=== PATIENT | male | born 1980 | race Caucasian/White ===

== ENCOUNTER 2018-07-13 16:13 | Emergency (ER) | payer MEDICARE, SELFPAY ==
[2018-07-13 16:14] VITALS: BP 125/95; PULSE 109; RESP 15; TEMP 36.7; O2SAT 99; BMI 16.9
--- NOTE | 2018-07-13 16:24 | ED.VISSUMM ---
- ER Visit Summary Date of Service: 07/13/18 Chief Complaint: Laceration History of Present Illness: The patient is a 38 M who cut his left index finger with a knife just prior to arrival. The patient was cutting plastic. He is unsure of his tetanus status. He reports numbness to the area. No other injuries or complaints. Right hand dominant. Physical Examination: Patient has a 2 cm laceration at his left index finger near the DIP joint, radial side. Full-thickness. Subjective paresthesias to the area. Capillary refill normal. No laxity. No deformity. Good range of motion. Test Results: None performed Emergency Department Course and Treatment: Tetanus updated. Index finger was digitally blocked. Cleaned, irrigated, explored. Closed with simple interrupted sutures. Treated with Keflex for prophylaxis. Follow-up with primary care in 10-14 days for suture removal. Return right away for any signs of infection or other complications. Treatment Plan: As above Disposition: Discharge Impression: 1. Left index finger laceration 2 cm This note was generated with [employer] dictation software. It may contain incorrect words, spelling, and punctuation that were not noted in review of the chart prior to signing ED Disposition - Plan for ED Patient: Chief Complaint: Laceration Referrals: Care Physician,No Primary [Primary Care Provider] -
--- NOTE | 2018-07-13 16:25 | ED.DEP ---
ED Disposition - Plan for ED Patient: Chief Complaint: Laceration Instructions: ED Laceration Hand Prescriptions: Cephalexin [Keflex] 500 mg PO Q6 #20 cap Referrals: Renu Hatfield [NON-STAFF] - 10-14 Days suture removal
[2018-07-13] MEDS: Diphth,Pertuss(Acell),Tet Vac 0.5 ML Vial IM (16:55)
[2018-07-13] MEDS: Cephalexin 250 MG Capsule 500 MG PO (16:57)
--- OUTSIDE RECORDS SUMMARY | 2018-09-14 22:56 | XMS RPT_ITS ---
:1980 Author Organization [facility] Care Team Providers Name Role Phone Primay Care Physicia, No Primary Care Unavailable Gilbert Paulino Attending Unavailable PROBLEMS PROBLEMS No Problem Records FoundPROCEDURES PROCEDURES No Procedure Records FoundRESULTS RESULTS EMERGENCY DEPARTMENT Observed: 07/13/2018 Status: F Source: [place] SUMMARY 4:27 PM [facility] [place] [place] REPOSITORY [facility] Medical Records Department [address] [place] [address] Emergency Department Summary 07/13/18 1624 MR#: [id number] Acct: [id number] Name: SANTO BETNACOURT Rep #: [id number] : 1980 38 From: Gilbert Paulino MD PCP: Care Physician, No Primary Status: PRE ER - ER Visit Summary Date of Service: 07/13/18 Chief Complaint: Laceration History of Present Illness: The patient is a 38 M who cut his left index finger with a knife just prior to arrival. The patient was cutting plastic. He is unsure of his tetanus status. He reports numbness to the area. No other injuries or complaints. Right hand dominant. Physical Examination: Patient has a 2 cm laceration at his left index finger near the DIP joint, radial side. Full-thickness. Subjective paresthesias to the area. Capillary refill normal. No laxity. No deformity. Good range of motion. Test Results: None performed Emergency Department Course and Treatment: Tetanus updated. Index finger was digitally blocked. Cleaned, irrigated, explored. Closed with simple interrupted sutures. Treated with Keflex for prophylaxis. Follow-up with primary care in 10- 14 days for suture removal. Return right away for any signs of infection or other complications. Treatment Plan: As above Disposition: Discharge Impression: 1. Left index finger laceration 2 cm This note was generated with [employer] software. It may contain incorrect words, spelling, and punctuation that were not noted in review of the chart prior to signing ED Disposition - Plan for ED Patient: Chief Complaint: Laceration Referrals: Care Physician,No Primary [Primary Care Provider] - What to do if you have Problems For any increased pain, shortness of breath, bleeding, nausea or vomiting, chest pain, or any unexpected problems, contact your Primary Care Provider. Call [facility] ([phone]) or report to the closest Emergency Room. Call 911 if necessary. 07/13/181626 <Electronically signed by Gilbert Paulino MD> Date Gilbert Paulino MD Cosigner Signature (If Indicated): Date CC: No Primary Care Physician DISCHARGE INSTRUCTION Observed: 07/13/2018 Status: F Source: [place] 4:27 PM [facility] [place] [place] REPOSITORY [facility] Medical Records Department [address] [place] [id number] Discharge Instruction 07/13/181624 MR#: [id number] Acct: [id number] Name: SANTO BETANCOURT Rep #: [id number] : 1980 38 From: Gilbert Paulino MD PCP: Care Physician, No Primary Status: PRE ER ED Disposition - Plan for ED Patient: Chief Complaint: Laceration Instructions: ED Laceration Hand Prescriptions: Cephalexin [Keflex] 500 mg PO Q6 #20 cap Referrals: Renu Hatfield [NON-STAFF] - 10-14 Days suture removal What to do if you have Problems For any increased pain, shortness of breath, bleeding, nausea or vomiting, chest pain, or any unexpected problems, contact your Primary Care Provider. Call [facility] ([phone]) or report to the closest Emergency Room. Call 911 if necessary. 07/13/181626 <Electronically signed by Gilbert Paulino MD> Date Gilbert Paulino MD Cosigner Signature (If Indicated): Date CC: No Primary Care Physician ALLERGIES ALLERGIES DATE TYPE / CODE NAME / CODE REACTION SEVERITY SOURCE 07/13/2018 Miscellaneous MACADAMIA NUTS Other Unknown Layne Allergy/[id number](S [facility]) Hospital Repository ENCOUNTERS ENCOUNTERS ADMIT/DISCHARGE ACCOUNT ADMITTING ENCOUNTER LOCATION SOURCE NUMBER CLASS 07/13/2018/ [id number] Emergency Layne Tillman [facility] ing:ED Repository PAYERS PAYERS ENCOUNTER GUARANTOR PAYER SUBSCRIBER SOURCE 07/13/2018 SANTO BETANCOURT340 Primary SANTO Tillman [facility] Insurance:MEDICARE WHITEDOB: [employer], [place] PART A [facility] [id number] 11831Lxp: .. Number: Repository () [id number] Date:2018-07-13 07/13/2018 Secondary NOT GIVENUNK [place] Insurance:SELF PAY [facility] Number: Effective Repository Date:2018-07-13
== END 2018-07-13 17:27 | disposition home or self-care (01) ==
PROVIDERS: Emergency Provider Emergency Medicine
DX: S61.211A Laceration without foreign body of left index finger without damage to nail, initial encounter (principal); R20.2 Paresthesia of skin; W26.0XXA Contact with knife, initial encounter; Y93.9 Activity, unspecified; Y92.9 Unspecified place or not applicable
CPT/HCPCS: 12001; 90471; 90715; 99283

== ENCOUNTER 2022-11-12 16:17 | Emergency (ER) | payer MEDICARE, SELFPAY ==
[2022-11-12 16:18] VITALS: BP 128/97; PULSE 99; RESP 18; TEMP 36.3; O2SAT 100
--- NOTE | 2022-11-12 16:26 | ED.RN ---
pt having a difficult time opening his eyes in the bright light.
--- NOTE | 2022-11-12 16:41 | EDS_ITS ---
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 He did not use any eye protection. Afterwards he felt fine. But early this morning he started to get burning itching and photophobia in both eyes. No nausea vomiting or headaches. No history of problems. No skin pain. No discharge. It is much better with his eyes closed and is worse when he looks at bright lights or the sound PFSH PFS Home Medications cephalexin 500 mg capsule 500 mg PO Q6 #20 caps 07/13/18 [Rx Last Taken Unknown] ibuprofen 800 mg tablet 800 mg PO TID PRN PRN Pain #20 tabs 07/13/18 [Rx Last Taken Unknown] hydrocodone-acetaminophen 5-325mg 5mg-325mg 1 tab PO Q6H 2 days #8 TABLETS 11/12/22 [Rx Last Taken Unknown] Allergy/AdvReac Type Severity Reaction Status Date / Time macadamia nut oil Allergy NEEDS Verified 11/12/22 16:19 FOLLOW-UP Social History Smoking Status: Never smoker ROS ROS ED Constitutional Constitutional ED: Denies chills or fever(s) Eyes Eyes: Reports change in vision and other Details: See history of present illness ENT ENT ED: Denies rhinorrhea Gastrointestinal Gastrointestinal: Denies nausea or vomiting Musculoskeletal Musculoskeletal: Denies myalgias Integumentary Denies Abrasions or rash Neurologic Neurologic: Denies headache(s), paresthesias or weakness Hematologic/Lymphatic Hematologic/Lymphatic: Denies easy bleeding, easy bruising or lymphadenopathy EXAM Physical Exam Narrative Exam Narrative: Patient awake alert. He is sitting on bed prefers his eyes closed. He does have tearing. HEENT shows no swelling rashes or vesicles or Briceño sign. No sinus tenderness. Eyes: Normal range of motion without limitation or pain. He does have tearing. He has some mild conjunctival injection diffusely. Pupillary response is normal. There is mild photophobia. Slit-lamp exam shows no gross abnormalities. I then placed tetracaine in the eye and he feels markedly improved. Eye stained with fluorescein and he has a superficial punctate keratitis pattern really as a band across his eyes. It looks like he was likely squinting when he was welding and he has this band of affected corneal epithelium. Cardiorespiratory shows easy unlabored breathing. Const Vital Signs: 11/12/22 16:18 Temperature 97.4 F L Temperature Source Temporal Pulse Rate 99 Respiratory Rate 18 Blood Pressure 128/97 H Blood Pressure Mean 107 Pulse Ox 100 Oxygen Delivery Method Room Air MDM MDM MDM Narrative Medical decision making narrative: I explained that this usually resolves within 1 to 2 days. I will give him 3 fr om Meissen ointment that will help. He should use dark glasses and keep his eyes closed. He should have avoid any further welding or sunlight. Even for a few days he can have some discomfort with bright lights. If he has significant visual loss he should return. He states that his blurry nails but he does not really want to open his eyes to do the exam. He states he can see everything is just a little blurry because he cannot open his eyes fully. Discharge Plan Triage Chief Complaint: Eye Problem ED Provider: Baljit Trevino Dx/Rx/DC Orders Clinical Impression: Exposure to welding light (arc), initial encounter, UV keratitis Instructions: ED Flash Burn to Eye Prescriptions: New hydrocodone-acetaminophen [hydrocodone-acetaminophen] 5-325 mg tablet 1 tab PO Q6H 2 Days Qty: 8 0RF No Action cephalexin 500 MG capsule 500 mg PO Q6 Qty: 20 0RF ibuprofen 800 MG tablet 800 mg PO TID PRN PRN (Reason: Pain) Qty: 20 0RF Primary Care Provider: Care Physician,No Primary Referrals: Shubham Thomason MD [Med Staff - Active Staff] - 1-2 Days if not improving Care Physician,No Primary [Primary Care Provider] - Disposition Disposition: Home, Self Care
[2022-11-12] MEDS: Fluorescein 1 MG STRIP 1 STRIP OPHTHALMIC (16:48)
[2022-11-12] MEDS: Tetracaine 0.5% Ophthalmic Bottle 1 DRP OPHTHALMIC (16:48)
[2022-11-12 16:57] VITALS: BMI 20.5
[2022-11-12] MEDS: Erythromycin Ophthalmic (NSY) 1 GM OPTH.TUBE 0.5 APPLIC EACH EYE (16:57)
== END 2022-11-12 16:58 | disposition home or self-care (01) ==
PROVIDERS: Emergency Provider Emergency Medicine; Visit Provider Emergency Medicine
DX: H16.8 Other keratitis (principal); W89.0XXA Exposure to welding light (arc), initial encounter
CPT/HCPCS: 99282

== ENCOUNTER 2022-12-21 | Emergency (ER) | payer MEDICARE, SELFPAY ==
[2022-12-21 00:02] VITALS: BP 127/98; PULSE 107; RESP 18; TEMP 36.8; O2SAT 99
--- NOTE | 2022-12-21 00:11 | RAD_ITS ---
INDICATION: trauma EXAMINATION/TECHNIQUE: X-RAY - LEFT XR Wrist Min 3 Views COMPARISON: None. FINDINGS: SOFT TISSUES: Unremarkable. BONES/JOINTS: Linear lucency within the articular surface of the distal radius seen only on the AP view. No other evidence of an acute fracture and no dislocation. Chronic fifth metacarpal fracture. No significant degenerative changes. No erosive changes. RAD/Wrist min 3 Views IMPRESSION: Questionable nondisplaced intra-articular fracture of the distal radius. Consider follow-up with CT. Electronically Signed: Ranjith Diaz DO at 0:35 EDT ,
--- NOTE | 2022-12-21 00:20 | RAD_ITS ---
INDICATION: trauma EXAMINATION/TECHNIQUE: X-RAY - LEFT XR Forearm 2 Views COMPARISON: None. FINDINGS: SOFT TISSUES: Unremarkable. BONES/JOINTS: Linear lucency at the articular surface of the distal radius. No other evidence of a fracture. No significant degenerative changes. No erosive changes. RAD/Forearm 2 Views IMPRESSION: Questionable nondisplaced intra-articular fracture of the distal radius. Consider follow-up with CT. Electronically Signed: Ranjith Diaz DO at 0:34 EDT ,
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
[2022-12-21 01:45] VITALS: PULSE 95; RESP 17; O2SAT 98; BMI 23.6
== END 2022-12-21 02:05 | disposition home or self-care (01) ==
LOC: ED 02:01
PROVIDERS: Emergency Provider Emergency Medicine; Visit Provider Emergency Medicine
DX: S52.502A Unspecified fracture of the lower end of left radius, initial encounter for closed fracture (principal); W17.89XA Other fall from one level to another, initial encounter
CPT/HCPCS: 29125; 73090; 73110; 99282